=== PATIENT | female | born 1955 | race African-American/Black ===

== ENCOUNTER 2019-02-26 07:26 | Day surgery (SDC) | payer BC ==
[~2019-02-26] VITALS: Ht 157.5 cm; Wt 56.1 kg
[2019-02-26 07:57] VITALS: BP 120/55; PULSE 69; TEMP 98.5
[2019-02-26] MEDS ORDERED: TIROSINT50 MC1 PO (08:06)
[2019-02-26] MEDS ORDERED: B-12 500 MCG PO (08:08)
[2019-02-26] MEDS ORDERED: MASON NATURAL1200 MG PO (08:08)
[2019-02-26] MEDS ORDERED: MASON NATURAL2000 IU PO (08:09)
[2019-02-26] MEDS ORDERED: COLLAGEN PEPTIDES PO (08:11)
--- NOTE | 2019-02-26 08:12 | NUR ---
TO RM AT 0735- CALL LIGHT IN REACH DAUGHTER AT BEDSIDE.
[2019-02-26 09:35] VITALS: BP 129/63; PULSE 70; TEMP 97.1
--- NOTE | 2019-02-26 09:35 | NUR ---
TO RM 4 PER CART FROM ENDOSCOPY. AWAKE BUT DROWSY, AMBULATED BACK TO RECLINER WITH ASSIST. TOLERATED WELL AND DAUGHTER AT BEDSIDE. RECEIVED WATER. DENIES PAIN OR DISCOMFORT AT THIS TIME.
[2019-02-26 09:50] VITALS: BP 108/65; PULSE 71
--- NOTE | 2019-02-26 09:50 | NUR ---
MORE AWAKE AND TALKING TO DAUGHTER RECEIVED 2ND CUP WATER, CRANBERRY JUICE, COFFEE/CREAM AND MUFFIN.
[2019-02-26 10:06] VITALS: BP 95/70; PULSE 65
--- NOTE | 2019-02-26 10:07 | NUR ---
DR RIZZO INTO TALK WITH PATIENT AND DAUGHTER ADAMA SIGALA PATIENT CONTINUES TO EAT BREAKFAST.
[2019-02-26 10:15] VITALS: BP 110/57; PULSE 66
--- NOTE | 2019-02-26 10:15 | NUR ---
ATE 100% AND TOLERATED WELL RECEIVED DISCHARGE INSTRUCTIONS AND VERBALIZED UNDERSTANDING. DISCONTINUED IV AND INT- CATHETER INTACT AMBULATED TO BATHROOM
--- NOTE | 2019-02-26 10:41 | NUR ---
DISCHARGED PER WC BY NURSING STAFF TO PRIVATE CAR IN CARE OF DAUGHTER
== END 2019-02-26 10:42 | disposition home or self-care (01) ==
LOC: SDCO 07:26
DX: Z12.11 Encounter for screening for malignant neoplasm of colon (principal); D12.2 Benign neoplasm of ascending colon; D12.4 Benign neoplasm of descending colon; K64.0 First degree hemorrhoids; E03.9 Hypothyroidism, unspecified; K58.9 Irritable bowel syndrome, unspecified; Z90.710 Acquired absence of both cervix and uterus
CPT/HCPCS: OP; J2250; J3010; J7030